=== PATIENT | male | born 1995 | race African-American/Black ===

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

== ENCOUNTER 2017-02-09 15:55 | Emergency (ER) | payer SELFPAY ==
[2017-02-09 16:14] VITALS: BP 136/78
--- NOTE | 2017-02-09 16:25 | ER Document Report ---
HPI - HPI Patient complains to provider of: dental pain Pain Level: 5 Context: 21 yo male c/o pain to right rear lower tooth pain x 3 days. + referred pain to right ear and right throat. no fever Associated Symptoms: None Exacerbated by: Food Relieved by: Denies Similar symptoms previously: Yes Recently seen / treated by doctor: No - ROS Systems Reviewed and Negative: Yes All other systems reviewed and negative Past Medical History - General Information source: Patient - Social History Smoking Status: Current Every Day Smoker Frequency of alcohol use: None Drug Abuse: None Lives with: Family Family History: CAD, Hyperlipidemia, Hypertension, Thyroid Disfunction Patient has suicidal ideation: No Patient has homicidal ideation: No - Medical History Medical History: Negative Pulmonary Medical History: Reports: Hx Asthma Renal/ Medical History: Denies: Hx Peritoneal Dialysis Skin Medical History: Reports Hx Eczema Psychiatric Medical History: Reports: Hx Anxiety - Immunizations Immunizations up to date: Yes Hx Diphtheria, Pertussis, Tetanus Vaccination: Yes Vertical Provider Document - CONSTITUTIONAL Agree With Documented VS: Yes Exam Limitations: No Limitations - INFECTION CONTROL TRAVEL OUTSIDE OF THE [place] IN LAST 30 DAYS: No - HEENT HEENT: Atraumatic, PERRLA Mouth Diagram: 1 - pain, swelling. no gingival swelling - NECK Neck: Normal Inspection, Supple - RESPIRATORY Respiratory: Breath Sounds Normal, No Respiratory Distress O2 Sat by Pulse Oximetry: 100 - CARDIOVASCULAR Cardiovascular: Regular Rate, Regular Rhythm - NEURO Level of Consciousness: Awake, Alert - DERM Integumentary: Warm, Dry Course - Vital Signs Vital signs: Temp Pulse Resp BP Pulse Ox 97.8 F 40 L 16 136/78 H 100 02/09/17 16:11 02/09/17 16:11 02/09/17 16:11 02/09/17 16:11 02/09/17 16:11 Discharge - Discharge Clinical Impression: Pain, dental Condition: Stable Disposition: HOME, SELF-CARE Instructions: Penicillin V K ([facility]), Toothache ([facility]), Ibuprofen (General) ([facility]) Prescriptions: Ibuprofen [Motrin 800 Mg Tablet] 800 mg PO Q6H #20 tablet Penicillin V Potassium [Penicillin Vk 500 mg Tablet] 500 mg PO BID #20 tablet
== END 2017-02-09 16:39 | disposition home or self-care (01) ==
LOC: ER 15:55
DX: K08.89 Other specified disorders of teeth and supporting structures (principal); H92.01 Otalgia, right ear; J02.9 Acute pharyngitis, unspecified; F17.200 Nicotine dependence, unspecified, uncomplicated
CPT/HCPCS: 99282

== ENCOUNTER 2017-02-16 14:47 | Emergency (ER) | payer SELFPAY ==
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
[2017-02-16 16:36] VITALS: BP 126/82
== END 2017-02-16 16:36 | disposition home or self-care (01) ==
LOC: ER 14:47
DX: S00.83XA Contusion of other part of head, initial encounter (principal); S60.222A Contusion of left hand, initial encounter; S60.00XA Contusion of unspecified finger without damage to nail, initial encounter; M79.645 Pain in left finger(s); M54.89 Other dorsalgia; Y04.2XXA Assault by strike against or bumped into by another person, initial encounter; J45.909 Unspecified asthma, uncomplicated; Z88.8 Allergy status to other drugs, medicaments and biological substances; Z88.5 Allergy status to narcotic agent
CPT/HCPCS: 70150; 72070; 99284